=== PATIENT | male | born 1940 | race Caucasian/White ===

== ENCOUNTER 2019-07-21 01:10 | Day surgery (SDC) | payer MEDICARE, OTHER, SELFPAY ==
[2019-07-01 16:01] VITALS: BMI 27.0
[2019-07-21] MEDS: CIPROFLOXACIN 500 MG TAB PO (12:00)
--- NOTE | 2019-07-21 12:06 | WPDHPUPDATE1 ---
History and Physical Update Update Date/Time: 07/21/19 12:06 History and Physical has been reviewed, including an updated exam of the patient. There are NO changes in the patient's condition. Risks, benefits, and alternatives have been discussed and questions answered. Patient agrees to proceed with procedure.
[2019-07-21 12:20] VITALS: BP 132/78; PULSE 88; RESP 18; O2SAT 98
[2019-07-21] MEDS: LIDOCAINE HCL 2% GEL UROJET 10 ML PKG MUCOUS MEM (12:20)
[2019-07-21 12:27] VITALS: BP 128/67; PULSE 71; RESP 20; O2SAT 98
--- NOTE | 2019-07-21 14:35 | OP_ITS ---
DATE OF PROCEDURE: 07/21/2019 PREOPERATIVE DIAGNOSIS: Left nephrolithiasis. POSTOPERATIVE DIAGNOSIS: Left nephrolithiasis. PROCEDURE PERFORMED: 1. Cystoscopy. 2. Left ureteral stent removal. INDICATION: The patient has a history of a left-sided ureteral stone. He underwent ureteral stent placement on 05/28/2019 and subsequent ureteroscopy on 06/03/2019. The patient presents today for a stent removal. Risks and alternatives discussed with patient and his and they agreed. DESCRIPTION OF PROCEDURE: Informed consent was obtained. The patient was taken to the operating room, given a local lidocaine Urojet. He was prepped and draped in a sterile fashion. We inserted a 16-Irish Storm catheter via urethra into the bladder. The stent was visualized at the ureteral orifice. . It was encrusted. With a grasper, stent was removed in 1 piece. I then reinserted the cystoscope. Inspection did not reveal any significant stone in the bladder and no significant bleeding. The scope was removed. The patient was awakened, taken to the recovery room in stable condition. FLUID: Per anesthesia. COMPLICATIONS: None. ESTIMATED BLOOD LOSS: Minimal. FOLLOWUP: The patient will have a renal ultrasound in 1 month to follow up his stone disease and ensure there was no postoperative hydronephrosis. Francisco I MT: David HOBSON
== END 2019-07-21 13:00 | disposition home or self-care (01) ==
PROVIDERS: PCP Family Medicine; Visit Provider Urology
PROC: (CPT 52352; principal; 2019-07-21 12:00)
DX: Z46.6 Encounter for fitting and adjustment of urinary device (principal)
CPT/HCPCS: 52310; A9270

== ENCOUNTER 2019-08-23 12:34 | Outpatient (CLI) | payer MEDICARE, OTHER, SELFPAY ==
--- NOTE | ~2019-08-23 | US_ITS ---
US retroperitoneal comp 08/23/2019 13:13 Procedure: Realtime transabdominal ultrasound of the kidneys and bladder. Indication: Left ureteral stone Comparison: CT dated 05/27/2019 Findings: Renal echotexture is normal bilaterally without hydronephrosis or renal calculus. There are multiple bilateral renal cysts, largest in the right kidney measuring 5.8 x 5.6 x 6.5 cm. Largest in the left kidney measures 11.2 x 10.5 x 8.8 cm. The right kidney measures 11.2 cm and left kidney lilly sures 10.9 cm. Bladder is not distended for evaluation. Impression: 1: Bilateral renal cysts. Reviewed, dictated and finalized at location A. Impression: 1: Bilateral renal cysts.
== END 2019-08-23 12:35 | disposition home or self-care (01) ==
LOC: ANHIMG 12:38
PROVIDERS: PCP Family Medicine; Visit Provider Urology
DX: N20.1 Calculus of ureter (principal); N28.1 Cyst of kidney, acquired
CPT/HCPCS: 76770

== ENCOUNTER 2019-10-08 11:39 | Outpatient (CLI) | payer MEDICARE, OTHER, SELFPAY ==
[2019-10-08 12:09] LABS: Add Urine Microscopic? YES; Appearance Urine Clear (Clear); Bacteria Urine Trace /hpf; Bilirubin Urine Negative (Negative); Blood Urine Negative (Negative); Color Urine Straw (Yellow); Glucose Urine UA Negative (Negative); Ketones Urine Negative (Negative); Leukocyte Esterase Ur 3+ LEU/UL (Negative); Mucus Urine Rare /lpf; Nitrate Urine Negative (Negative); Protein Urine Negative (Negative); Specific Grav Ur 1.009 (1.001-1.035); Squamous Epithelial Cell Urine Few /hpf (Few); Urobilinogen Urine Negative mg/dL (<2.0); WBC Urine 16-20 /hpf
== END 2019-10-08 11:40 | disposition home or self-care (01) ==
PROVIDERS: PCP Family Medicine; Visit Provider Family Medicine
DX: N39.0 Urinary tract infection, site not specified (principal)
CPT/HCPCS: 81001; 87077; 87086; 87088; 87186

== ENCOUNTER 2019-11-02 23:02 | Inpatient (IN) | payer MEDICARE, OTHER, SELFPAY ==
--- NOTE | ~2019-11-02 | CT_ITS ---
EXAMINATION: CT abdomen pelvis wo con DATE: 11/02/2019 23:54 INDICATION: Generalized abdominal pain TECHNIQUE: Computed tomography (CT) of the abdomen and pelvis was performed without intravenous contr ast. Automated exposure control and iterative reconstruction technique were employed. Exam dose: 137 2.34 mGy-cm total exam DLP. COMPARISON: 05/27/2019 CT abdomen pelvis FINDINGS: Stable approximately 8 mm calcified nodule in the anteromedial right lower lobe (series 4 i mage 13). Stable small peripheral pleural-based nodule, lingula (image 14). Cardiomegaly. No pericardial or pleural effusion. No hepatic or splenic, pancreatic or adrenal space-occupying mass lesion is evident. The gallbladder is present. No gallbladder wall thickening or pericholecystic fluid collection. No bile duct or pancr eatic duct dilatation. There are bilateral renal cysts, measuring up to 9 cm on the left, 6.2 cm on the right. Approximately 6 mm nonobstructing lower pole left renal calculus. There is a Storm catheter in the urinary bladder. The urinary bladder is evacuated. There is one or possibly due to medially contiguous stones in the urinary bladder, measuring up to ap proximately 5.5 x 7.3 mm maximal overall dimension on axial view. There is diverticulosis of the colon, primarily in the sigmoid region. Diverticulum is noted at the h epatic flexure of the colon. There is a prominent amount of fecal material within the colon. No bowel obstruction, bowel wall thickening, pneumatosis or intraperitoneal free air. There is calcification of the abdominal aorta and branches. No abdominal aortic aneurysm. No intraper itoneal or retroperitoneal or pelvic mass lesion or adenopathy or ascites. Degenerative changes of the thoracic and lumbar spine, including degenerative changes of the apophyse al joints with associated grade 1 anterolisthesis at L3-4. IMPRESSION: Left nephrolithiasis Urinary bladder stones Cardiomegaly, coronary and aortic, iliofemoral atherosclerosis Bilateral renal cysts Reviewed, dictated and finalized at Location A. Reviewed, dictated and finalized at location A.
--- NOTE | ~2019-11-02 | XR_ITS ---
EXAMINATION: XR chest 1V portable INDICATION: Left-sided rib pain TECHNIQUE: Portable AP chest at 2355 hours COMPARISON: 11/09/2018 FINDINGS: There is stable cardiomegaly. Old left sided rib fractures are noted. There is mild atelect asis of the lung bases. No pleural effusion or pneumothorax is identified. IMPRESSION: 1. Stable cardiomegaly. Reviewed, dictated and finalized at location A. IMPRESSION: 1. Stable cardiomegaly.
--- NOTE | ~2019-11-02 | CT_ITS ---
EXAMINATION: CT brain wo con DATE: 11/02/2019 23:54 INDICATION: Fall. Altered mental state. Confusion. History of Alzheimer's disease. Dementia. Parkinso n's. TECHNIQUE: Computed tomography (CT) of the head was performed without intravenous contrast. The mA wa s adjusted according to patient size. Iterative reconstruction technique was employed. Exam dose: 16 64.67 mGy-cm total exam DLP. COMPARISON: 11/13/2018 CT brain FINDINGS: There is bilateral vertebral artery and bilateral carotid siphon internal carotid artery ca lcification. There is nonspecific diminished attenuation of the subcortical and periventricular cereb ral white matter, likely due to chronic small vessel ischemic changes. There are central and cortical cerebral atrophy. No intracranial mass lesion or hemorrhage or cerebro vascular accident is evident. No midline shift or mass effects. No subdural or epidural hematoma. No orbital mass lesion. There is mild soft tissue thickening of the ethmoid air cells, primarily on the right and a small muc us retention cyst or polyp of the left sphenoid sinus. The right frontal sinus is not developed. The included paranasal sinuses are otherwise unremarkable. The mastoid air cells are normally developed a nd aerated. No fracture or bone destruction of the cranial vault. IMPRESSION: Cerebral atherosclerosis and chronic small vessel ischemic changes of the cerebral white matter Central and cortical cerebral atrophy No acute intracranial finding Reviewed, dictated and finalized at Location A. Reviewed, dictated and finalized at location A.
[2019-11-02 23:04] VITALS: BP 120/65; PULSE 94; RESP 22; TEMP 36.6; O2SAT 98
--- NOTE | 2019-11-02 23:10 | ECG_ITS ---
Measurements Intervals [place] Rate: 92 P: 40 MO: 215 QRS: -73 QRSD: 162 T: 79 QT: 412 QTc: 511 Interpretive Statements SINUS RHYTHM WITH FIRST DEGREE AV BLOCK ATRIAL PREMATURE COMPLEX RIGHT BUNDLE BRANCH BLOCK LEFT ANTERIOR FASCICULAR BLOCK BASELINE ARTIFACT- V1 ABNORMAL ECG Electronically Signed On 11-03-2019 7:20:14 CDT by Armando Alfredo D.O.
--- NOTE | 2019-11-02 23:13 | ED.AMS ---
HPI - Altered Mental Status General Chief Complaint: Altered Mental Status Stated Complaint: falling, increased ams Time Seen by Provider: 11/02/19 23:04 Source: RN notes reviewed History of Present Illness HPI narrative: Patient presents emergency department from home via EMS for altered mental status. Patient with history of Parkinson's and history is per is present. Per the the patient has been increasingly weak over the past week. He slid out of his chair today and was unable to get up. Approximately 1 week ago the patient was seen by Dr. Zarco in the office with a Storm catheter placed for urinary incontinence and started on Bactrim for a UTI. Per the patient does have a history of Parkinson's disease and is followed by Dr. Martinez. The patient has been noted to be having some hallucinations and increased agitation as well at home. states the patient is been able to get up and ambulate at home. Denies any fevers or chills nausea vomiting does note the patient has been constipated and was given MiraLAX 2 days ago Related Data Home Medications Medication Instructions Recorded Confirmed carbidopa-levodopa 1 tablet PO QID 05/27/19 07/21/19 ondansetron HCl [Zofran] 4 mg PO Q8H PRN 05/27/19 07/21/19 sertraline [Zoloft] 50 mg PO DAILY 05/27/19 07/21/19 acetaminophen 650 mg PO Q8H PRN 07/01/19 07/21/19 albuterol sulfate 2.5 mg INHALATION Q6H PRN 07/01/19 07/21/19 bisacodyl 5 mg PO ONCE PRN 07/01/19 07/21/19 bisacodyl 10 mg NM DAILY PRN 07/01/19 07/21/19 fluticasone propionate [Flonase 1 spray INTRANASAL DAILY 07/01/19 07/21/19 Allergy Relief] bakcpxenqpwl-jox-dapp-FA-vit K 1 tablet PO DAILY 07/01/19 07/21/19 [Adults Multivitamin] Allergies Allergy/AdvReac Type Severity Reaction Status Date / Time lactose Allergy Unknown GI DISTRESS Verified 07/21/19 12:14 Review of Systems Review of Systems: Narrative: Gen.: Denies fevers or chills ENT: Denies congestion Respiratory: Denies shortness of breath or cough CV: Denies chest pain or palpitations GI: Reports lower abdominal pain denies any vomiting or diarrhea Reports Storm with UTI Musculoskeletal: Denies back pain or muscle pain Neuro: Denies numbness, tingling, weakness or focal weakness Skin: Denies rash Except as documented, all other systems reviewed and negative [facility] Past Medical History Medical History Ambulatory dysfunction Arthritis CAD (coronary artery disease) CHF (congestive heart failure) Depression Diverticulosis Fracture of left hip requiring operative repair GERD (gastroesophageal reflux disease) GI bleed HTN (hypertension) IBS (irritable bowel syndrome) Kidney stones Nonobstructing stones on the left Lewy body dementia MVP (mitral valve prolapse) Myocardial infarction Cardiac catheterization 2009 was err [facility] Parkinson's disease Pneumonia Prostate cancer Sleep apnea Not adherence to CPAP therapy 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 There adult son recently moved in as he is currently going through divorce. He is usually able to ambulate and climb stairs without assistance. Patient has 2 children. 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 The patient is a former smoker and smoked a pack-a-day for about 10 years. Quit smoking in 1973. Does not drink alcohol. Code status is full code. His Mahsa is his durable power of multifocal button grinder and is at bedside. Primary care physician is Dr. Clancy. Neurologist is Dr. Jed Martinez Smoking status: Former smoker Tobacco type: cigarettes Second hand toba
[2019-11-02 23:28] LABS: Basophils Absolute Auto 0.1 K/mm3 (0.0-0.1); Basophils Percent Auto 0.4 % (0.2-1.2); Eosinophils Absolute Auto 0.2 K/mm3 (0-0.3); Eosinophils Percent Auto 1.1 % (0-4.4); Hemoglobin 13.2 g/dL (14.0-18.0); Immature Granulocyte Absolute 0.08 K/mm3 (0.00-0.031); Immature Granulocyte Percent A 0.5 % (0-0.5); Lymphocytes Absolute Auto 1.17 K/mm3 (0.9-3.2); Lymphocytes Percent Auto 7.7 % (18.3-44.2); Mean Corpuscular Hemoglobin 31.7 pg (26-34); Mean Corpuscular Volume 95.9 fl (80-100); Mean Platelet Volume 10.4 fl (7.4-10.4); Monocytes Absolute Auto 1.2 K/mm3 (0.1-0.6); Monocytes Percent Auto 8.1 % (2.6-8.5); Neutrophils Absolute Auto 12.6 K/mm3 (1.3-6.7); Neutrophils Percent Auto 82.2 % (45.5-73.1); Platelet Count Result 229 k/mm3 (150-375); Red Blood Count 4.17 M/mm3 (4.6-6.20); Red Cell Distribution Width 13.4 % (11.5-14.5); White Blood Count 15.3 K/mm3 (4.5-10.0)
[2019-11-02 23:37] LABS: Add Urine Microscopic? YES; Appearance Urine Cloudy (Clear); Bacteria Urine 4+ /hpf; Bilirubin Urine Negative (Negative); Blood Urine 1+ (Negative); Calcium Oxalate Crystals Urine Present /hpf; Color Urine Yellow (Yellow); Glucose Urine UA Negative (Negative); Ketones Urine Trace mg/dL (Negative); Leukocyte Esterase Ur 3+ LEU/UL (Negative); Mucus Urine Rare /lpf; Nitrate Urine Positive (Negative); Protein Urine 2+ mg/dL (Negative); RBC Urine 21-50 /hpf (0-2); Specific Grav Ur 1.018 (1.001-1.035); Urobilinogen Urine Negative mg/dL (<2.0); WBC Urine >75 /hpf
[2019-11-02 23:38] LABS: Lactic Acid Reflex 3.1 mmol/L (0.7-2.1)
[2019-11-02 23:38] LABS: Prothrombin Time 12.6 Seconds (11.1-14.7)
[2019-11-02 23:39] LABS: Alanine Aminotransferase 6 U/L (4-50); Albumin Level 4.5 g/dL (3.5-5.1); Alkaline Phosphatase 151 U/L (38-126); Aspartate Amino Transferase 20 U/L (17-59); Bilirubin,Total 0.4 mg/dL (0.2-1.3); Blood Urea Nitrogen 31 mg/dL (9-20); Calcium 9.6 mg/dL (8.4-10.2); Carbon Dioxide 25 mmol/L (22-30); Chloride 105 mmol/L (98-107); Estimated Glomerular Filt Rate 45; Glucose 114 mg/dL (75-110); Partial Thromboplastin Time 28.1 SECONDS (22.3-36.8); Sodium 137 mmol/L (137-145)
[2019-11-02] MEDS: SODIUM CHLORIDE 0.9% IV 1,000 ML 999 ML IV CONT (23:44)
[2019-11-03] VITALS (7 sets, daily range): BP systolic 100–138; BP diastolic 55–69; PULSE 61–83; RESP 16–20; TEMP 36.5–37.1; O2SAT 94–100; BMI 30.4
[2019-11-03] MEDS: SODIUM CHLORIDE 0.9% IV 1,000 ML 999 ML IV CONT (01:25)
--- NOTE | 2019-11-03 01:50 | ADMGEN ---
This patient, Cesar Ramírez, was admitted to Medical Room 346-01. Patient/family oriented to hospital policies and general routines including ID bracelet, bed and alarms, visiting hours, pain management, procedures, bathroom and other care routines, personal items, smoking policy, room service/diet, and visiting hours. Valuables list has been completed. Information on how to activate the Rapid Response Team has been discussed. Patient/Family are encouraged to report perceived risks to care and to ask questions if they do not understand what they are told or what they should do.
[2019-11-03] MEDS: SODIUM CHLORIDE 0.9% IV 1,000 ML 125 ML IV CONT ×2 (01:53→10:04)
[2019-11-03 02:25] LABS: Reflex Lactic Acid Yes or No Add Lactic
[2019-11-03 02:57] LABS: Lactic Acid 1.3 mmol/L (0.7-2.1)
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
[2019-11-03 08:09] LABS: Hematocrit 34.3 % (42.0-52.0); Hemoglobin 11.3 g/dL (14.0-18.0); Mean Corpuscular HGB Conc 32.9 g/dl (32-36); Mean Corpuscular Hemoglobin 31.8 pg (26-34); Mean Corpuscular Volume 96.6 fl (80-100); Mean Platelet Volume 10.5 fl (7.4-10.4); Platelet Count Result 188 k/mm3 (150-375); Red Blood Count 3.55 M/mm3 (4.6-6.20); Red Cell Distribution Width 13.5 % (11.5-14.5); White Blood Count 8.1 K/mm3 (4.5-10.0)
[2019-11-03] MEDS: SERTRALINE HCL 50 MG TABLET PO (08:11)
[2019-11-03] MEDS: CARBIDOPA/LEVODOPA 25/250 MG TABLET 1 TABLET PO ×4 (08:11→20:26)
[2019-11-03] MEDS: AMLODIPINE BESYLATE 5 MG TABLET PO (08:11)
[2019-11-03] MEDS: polyethylene glycoL 3350 17 GM POWD.PACK PO (08:12)
[2019-11-03] MEDS: FLUTICASONE PROPIONATE 0.05% NA SPR 16 GM BTL (*BKC) 1 SPRAY NASAL (08:12)
[2019-11-03 08:22] LABS: Blood Urea Nitrogen 25 mg/dL (9-20); Calcium 8.7 mg/dL (8.4-10.2); Carbon Dioxide 21 mmol/L (22-30); Chloride 110 mmol/L (98-107); Estimated CRCL calculation 45 ml/min; Estimated Glomerular Filt Rate 54; Glucose 90 mg/dL (75-110); Potassium 4.6 mmol/L (3.4-5.0); Sodium 137 mmol/L (137-145)
[2019-11-03] MEDS: busPIRone HCL 5 MG TABLET PO (13:06)
--- NOTE | 2019-11-03 15:41 | PM.IMPN ---
Progress Note: A&P Assessment and Plan (1) Acute UTI: Code(s): N39.0 - Urinary tract infection, site not specified Status: Acute Assessment and Plan: UA suggestive of UTI. PAtient has had frequent UTIs in the past. states he is incontinent when he does not have a Storm placed. UC and BC pending. WBC improved overnight to 8.1k today. VSS, afebrile Continue empiric antibiotic therapy with Rocephin. Light IVF for now (2) Sepsis: Code(s): A41.9 - Sepsis, unspecified organism Status: Acute Assessment and Plan: Technically septic with tachypnea, leukocytosis and lactic acidosis at arrival and UTI as source. VSS improved; leukocytosis and lactic acidosis resolved. Blood cultures and urine cultures are pending. Continue treatment for suspected source of UTI as outlined above Light IVF given his CHF (3) Acute metabolic encephalopathy: Code(s): G93.41 - Metabolic encephalopathy Status: Acute Assessment and Plan: Presenting with hallucinations. Complicating underlying Lewy body dementia and Parkinsons on multiple medications for each. states he sees Dr. Martinez as outpatient, but has not been able to see him since 04/2019. is concerned that patient may be taking too many medications and has been started on buspirone by a provider at [facility] and has not seen Dr. Martinez since. Treat underlying infectious process. Continue home buspirone, clonazepam, Seroquel, and Zoloft for now Consult placed to Dr. Martinez to potentially adjust medications if applicable. (4) Acute renal insufficiency: Code(s): N28.9 - Disorder of kidney and ureter, unspecified Status: Acute Assessment and Plan: Due to underlying UTI and sepsis. Cr improved to 1.30 since yesterday. Continue light IV fluid hydration. Repeat BMP tomorrow Hold angiotensin receptor harriet for now. Consider resuming tomorrow (5) Parkinson's disease: Code(s): G20 - Parkinson's disease Status: Acute Assessment and Plan: Continue home Sinemet Dr. Martinez consulted and appreciate recommendations (6) Storm catheter in place: Code(s): Z96.0 - Presence of urogenital implants Status: Acute Assessment and Plan: Storm catheter placed by Dr. Zarco approximately 1 week ago. Storm is draining appropriately in the patient has outpatient follow-up arranged. Subjective Date/time seen: 11/03/19 15:41 Interval history: Patient is a 79 yo M with past medical history of recent urinary retention with Storm catheter placement, Parkinson's disease and Lewy body dementia who is here for UTI/sepsis, AMS likely due to infection on top of baseline dementia, and KAREEM. Patient is A&O to himself and ; he is pleasantly confused and at times, giving nonsensical answers. He likely poor historian given his dementia and acute UTI. He does report occasional nausea without vomiting; no other complaints. HPI/ROS difficulty to obtain, but when questioned, denies f/c/s, cp/palpitations, sob/cough, abd pain, changes in BMs Review of Systems Review of Systems: ROS unobtainable: Yes unobtainable due to mental status (Difficult to obtain; see above) Exam Narrative: Exam Narrative: Patient lying in semi-lowe's position Const: General: cooperative, comfortable, no acute distress, well developed, alert and ill appearing chronically Orientation/consciousness: oriented to person (and ) and confusion (pleasantly confused) HENMT: Head: normocephalic and atraumatic General nose exam: Normal nares present Face and sinus: face symmetric Eyes: General: appearance normal, both eyes and all related structures EOM: EOMs intact bilaterally Neck: Neck: trachea midline and s
[2019-11-03] MEDS: SODIUM CHLORIDE 0.9% IV 1,000 ML 75 ML IV CONT (16:35)
[2019-11-03] MEDS: QUEtiapine FUMARATE 25 MG TABLET PO (16:36)
[2019-11-03] MEDS: CARBIDOPA/LEVODOPA 25/100 MG CR TABLET 1 TABLET PO (19:40)
[2019-11-03] MEDS: TOLNAFTATE 1% POWDER 45 GM BTL 1 APPLIC TOPICAL (20:26)
[2019-11-03] MEDS: QUEtiapine FUMARATE 25 MG TABLET 50 MG PO (20:26)
[2019-11-03] MEDS: CLONAZEPAM 0.5 MG TAB PO (20:28)
[2019-11-04 04:53] VITALS: BP 127/78; PULSE 102; RESP 18; TEMP 36.1; O2SAT 95
[2019-11-04 06:06] LABS: Basophils Absolute Auto 0.1 K/mm3 (0.0-0.1); Basophils Percent Auto 0.7 % (0.2-1.2); Eosinophils Absolute Auto 0.5 K/mm3 (0-0.3); Hematocrit 38.3 % (42.0-52.0); Hemoglobin 12.3 g/dL (14.0-18.0); Immature Granulocyte Absolute 0.03 K/mm3 (0.00-0.031); Immature Granulocyte Percent A 0.4 % (0-0.5); Lymphocytes Percent Auto 29.9 % (18.3-44.2); Mean Corpuscular HGB Conc 32.1 g/dl (32-36); Mean Corpuscular Hemoglobin 31.4 pg (26-34); Mean Corpuscular Volume 97.7 fl (80-100); Mean Platelet Volume 10.7 fl (7.4-10.4); Monocytes Absolute Auto 0.8 K/mm3 (0.1-0.6); Monocytes Percent Auto 10.7 % (2.6-8.5); Neutrophils Absolute Auto 3.6 K/mm3 (1.3-6.7); Neutrophils Percent Auto 51.3 % (45.5-73.1); Platelet Count Result 196 k/mm3 (150-375); Red Blood Count 3.92 M/mm3 (4.6-6.20); Red Cell Distribution Width 13.4 % (11.5-14.5)
[2019-11-04 06:39] LABS: Blood Urea Nitrogen 15 mg/dL (9-20); Calcium 9.2 mg/dL (8.4-10.2); Carbon Dioxide 22 mmol/L (22-30); Chloride 110 mmol/L (98-107); Estimated CRCL calculation 58 ml/min; Estimated Glomerular Filt Rate > 60; Glucose 79 mg/dL (75-110); Potassium 4.5 mmol/L (3.4-5.0); Sodium 139 mmol/L (137-145)
[2019-11-04] MEDS: AMLODIPINE BESYLATE 5 MG TABLET PO (08:55)
[2019-11-04] MEDS: CARBIDOPA/LEVODOPA 25/250 MG TABLET 1 TABLET PO ×4 (08:56→20:00)
[2019-11-04] MEDS: FLUTICASONE PROPIONATE 0.05% NA SPR 16 GM BTL (*BKC) 1 SPRAY NASAL (08:56)
[2019-11-04] MEDS: TOLNAFTATE 1% POWDER 45 GM BTL 1 APPLIC TOPICAL ×2 (08:56→20:01)
[2019-11-04] MEDS: polyethylene glycoL 3350 17 GM POWD.PACK PO (08:56)
[2019-11-04] MEDS: SERTRALINE HCL 50 MG TABLET PO (09:00)
[2019-11-04 14:00] VITALS: BP 132/91; PULSE 79; RESP 20; TEMP 36.4; O2SAT 97
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
--- NOTE | 2019-11-04 15:39 | PM.IMPN ---
Progress Note: A&P Assessment and Plan (1) Acute UTI: Code(s): N39.0 - Urinary tract infection, site not specified Status: Acute Assessment and Plan: UA suggestive of UTI. PAtient has had frequent UTIs in the past. states he is incontinent when he does not have a Storm placed. Bladder Calculi noted and possible source of infection as wel. UCx growing E. Coli susceptible to Rocephin and BCx negative to date x 2. WBC improved overnight to 7.0k today. VSS, afebrile Continue with Rocephin. Likely discharge on PO cefdinir at discharge (2) Sepsis: Code(s): A41.9 - Sepsis, unspecified organism Status: Acute Assessment and Plan: Technically septic with tachypnea, leukocytosis and lactic acidosis at arrival and UTI as source. VSS improved; leukocytosis and lactic acidosis resolved; afebrile. BCx negative to date x 2. UCx growing E. coli sensitive to Rocephin, as above Continue treatment for suspected source of UTI as outlined above (3) Acute metabolic encephalopathy: Code(s): G93.41 - Metabolic encephalopathy Status: Acute Assessment and Plan: Presenting with hallucinations. Complicating underlying Lewy body dementia and Parkinsons on multiple medications for each. states he sees Dr. Martinez as outpatient, but has not been able to see him since 04/2019. is concerned that patient may be taking too many medications and has been started on buspirone by a provider at an OSH during a recent hospital stay and has not seen Dr. Martinez since. Treat underlying infectious process. Continue home buspirone, clonazepam, Seroquel, and Zoloft for now Appreciate recommendations per Dr. Martinez (4) Acute renal insufficiency: Code(s): N28.9 - Disorder of kidney and ureter, unspecified Status: Acute Assessment and Plan: Due to underlying UTI and sepsis. Cr improved to 1.00 since yesterday. Appears to have resolved Repeat BMP tomorrow Hold angiotensin receptor harriet for now. Consider resuming tomorrow (5) Parkinson's disease: Code(s): G20 - Parkinson's disease Status: Acute Assessment and Plan: states there is a discrepanc with his Sinemet he takes at bedtime Will have Nursing address his Sinemet and adjust as needed. Continue home Sinemet Dr. Martinez consulted and appreciate recommendations (6) Storm catheter in place: Code(s): Z96.0 - Presence of urogenital implants Status: Acute Assessment and Plan: Storm catheter placed by Dr. Zarco approximately 1 week ago. Storm is draining appropriately; clear and yellow urine output. Consult to Urology placed and appreciate recommendations Appears Storm to be replaced tomorrow per Urology Subjective Date/time seen: 11/04/19 15:39 Interval history: Patient is a 79 yo M with past medical history of recent urinary retention with Storm catheter placement, Parkinson's disease and Lewy body dementia who is here for UTI/sepsis, AMS likely due to infection on top of baseline dementia, and KAREEM. Patient is A&O to himself and ; he is pleasantly confused and at times, giving nonsensical answers, much like yesterday. He is a poor historian given his dementia and acute UTI. He does not give me any complaints today. HPI/ROS difficulty to obtain, but when questioned, denies f/c/s, cp/palpitations, sob/cough, abd pain Review of Systems Review of Systems: ROS unobtainable: Yes unobtainable due to mental status (Difficult to obtain; see above) Neurologic: Reports Abnormal speech present (clear, but nonsensical at times; inappropriate responses at times) Exam Narrative: Exam Narrative: Patient lying in semi-lowe's position Const: General: cooperative, comfo
--- NOTE | 2019-11-04 16:29 | CONS_ITS ---
DATE OF CONSULTATION: 11/04/[address] Aaron Grant and Dr. Rahman. REASON FOR CONSULTATION: Increasing confusion and hallucination. HISTORY OF PRESENT ILLNESS: A 79-year-old right-handed male presented to the ER via EMS for the complaint of increasing confusion with hallucination and generalized weakness. The patient reportedly was in Dr. Zarco's office 1 week ago, because of urinary retention and has the Storm catheter in at this particular time. He was sent home from the office for the UTI with Bactrim on, but reportedly has become increasingly confused and has had the increasing hallucination. In addition, the patient has ongoing history of multiple problems, as he has been outlined, particularly the gait dysfunction with underlying arthritis, coronary artery disease, congestive heart failure, diverticulosis, GERD, hypertension, irritable bowel syndrome, renal stones, Lewy bodies dementia, Parkinson's disease, prostatic cancer, sleep apnea, squamous cell carcinoma in situ, tibial fracture, ulcer, and urinary retention. He has undergone multiple surgeries. He is followed by Dr. Alfonso Clancy on a regular basis in addition to our office. He has history of smoking 10 pack years, former smoker. No alcohol intake. MEDICATIONS: Has been taking multiple medications as outlined particular to mention: 1. Carbidopa-levodopa 1 tablet 4 times a day. 2. Sertraline 50 mg daily. 3. BuSpar 5 mg twice a day p.r.n. 4. Seroquel 50 mg h.s. 5. Clonazepam 0.5 mg at h.s. 6. Carbidopa-levodopa 1 tab at night as well in addition to Seroquel 25 mg in the evening. PHYSICAL EXAMINATION: VITAL SIGNS: Evaluation up until now revealed him to be afebrile, normotensive, blood pressure 120/65, pulse ox 98%. GENERAL: Awake, alert, cooperative, in no obvious acute distress. HEENT: Head normocephalic with no cranial bruit. Ear, nose, throat exam normal. NECK: Supple with no cervical bruit. No thyromegaly. No lymphadenopathy. HEART: Regular with no murmur. LUNGS: Clear. ABDOMEN: Soft with no organomegaly. NEUROLOGICAL: He is the awake, alert, completely incoherence and had no regard for the physician needs in the examination room, looking at the window, looking at the TV. Pupils round, regular. Ryan of vision full to the threat stimuli. Extraocular movements are spontaneously full with no nystagmus. Reflexes are symmetrical. Plantars are downgoing. IMPRESSION: History of Lewy body dementia with ongoing Parkinsonian symptom as well as the hallucination. At this stage, the patient is receiving BuSpar 5 mg twice a day, clonazepam 0.5 mg h.s. and Seroquel 50 mg h.s. in addition to the 25 that is total of 75. I will adjust the medication accordingly. WING SCHAFER M.D. BOX SHOOK PATCHER BOX SHOOK PATCHER D I MT: David
--- NOTE | 2019-11-04 18:05 | PC.NURSE ---
Pt called to confirm home meds in order to clarify discrepancies. she states patient is taking: buspar is 5mg BID OLGA (not PRN) sinemet 25/250 1 tab TID (not QID) sinemet ER 50/200 1 tab @HS expressed concerns about pt not receiving irbesartan 300mg daily @1200. is confused as to whether or not patient has been receiving correct doses/schedule at home. Dr. Martinez consulted to adjust meds if necessary. Juan's note states sinemet is given at QID and HS, this is how it is currently scheduled on the MAR. message left with Aaron Grant regarding this information
[2019-11-04] MEDS: QUEtiapine FUMARATE 25 MG TABLET PO (18:21)
[2019-11-04] MEDS: CARBIDOPA/LEVODOPA 25/100 MG CR TABLET 1 TABLET PO (19:53)
[2019-11-04] MEDS: CLONAZEPAM 0.5 MG TAB PO (20:00)
[2019-11-04] MEDS: QUEtiapine FUMARATE 25 MG TABLET 50 MG PO (20:01)
[2019-11-04 20:23] VITALS: BP 113/57; PULSE 71; RESP 20; TEMP 36.1; O2SAT 95
[2019-11-05 04:15] VITALS: BP 129/64; PULSE 64; RESP 16; TEMP 36.1; O2SAT 100
[2019-11-05 05:56] LABS: Hematocrit 39.8 % (42.0-52.0); Hemoglobin 12.9 g/dL (14.0-18.0); Mean Corpuscular HGB Conc 32.4 g/dl (32-36); Mean Corpuscular Hemoglobin 31.5 pg (26-34); Mean Corpuscular Volume 97.3 fl (80-100); Mean Platelet Volume 10.8 fl (7.4-10.4); Platelet Count Result 199 k/mm3 (150-375); Red Blood Count 4.09 M/mm3 (4.6-6.20); Red Cell Distribution Width 13.2 % (11.5-14.5); White Blood Count 7.1 K/mm3 (4.5-10.0)
[2019-11-05 06:01] LABS: Blood Urea Nitrogen 17 mg/dL (9-20); Calcium 9.4 mg/dL (8.4-10.2); Carbon Dioxide 22 mmol/L (22-30); Chloride 107 mmol/L (98-107); Estimated CRCL calculation 58 ml/min; Estimated Glomerular Filt Rate > 60; Glucose 73 mg/dL (75-110); Potassium 4.3 mmol/L (3.4-5.0); Sodium 137 mmol/L (137-145)
[2019-11-05] MEDS: FLUTICASONE PROPIONATE 0.05% NA SPR 16 GM BTL (*BKC) 1 SPRAY NASAL (08:10)
[2019-11-05] MEDS: CARBIDOPA/LEVODOPA 25/250 MG TABLET 1 TABLET PO ×2 (08:10→13:34)
[2019-11-05] MEDS: polyethylene glycoL 3350 17 GM POWD.PACK PO (08:10)
[2019-11-05] MEDS: AMLODIPINE BESYLATE 5 MG TABLET PO (08:10)
[2019-11-05] MEDS: CEFDINIR 300 MG CAPSULE PO (08:10)
[2019-11-05] MEDS: TOLNAFTATE 1% POWDER 45 GM BTL 1 APPLIC TOPICAL (08:11)
--- NOTE | 2019-11-05 09:33 | WPDUROPN2 ---
Progress Note: A&P Assessment and Plan (1) Left renal stone: Code(s): N20.0 - Calculus of kidney Status: Acute Assessment and Plan: No further evaluation necessary, will follow yearly with a KUB. (2) Bladder calculi: Code(s): N21.0 - Calculus in bladder Status: Acute Assessment and Plan: If patient doesn't pass through ramírez on his own, will remove with cysto in office in a month at follow up appt with Dr. Zarco. (3) Ramírez catheter in place: Code(s): Z96.0 - Presence of urogenital implants Status: Acute Assessment and Plan: His ramírez catheter was exchanged today to a 16fr coude catheter. It was inserted without difficulty, betadine swabs were used prior to placement. 50cc of clear yellow urine on return. (4) Acute UTI: Code(s): N39.0 - Urinary tract infection, site not specified Status: Acute Assessment and Plan: Continue IV antibiotics, discharge with appropriate oral antibiotics. Ok to discharge at anytime. Subjective Subjective Date/Time Seen: 11/05/19 09:33 Patient doing well this morning, he is slightly confused. Review of Systems Cardiovascular: Cardiovascular: Reports no additional cardiovascular complaints Respiratory: Respiratory: Reports no additional respiratory complaints Gastrointestinal: Gastrointestinal: Denies abdominal pain, Denies nausea and Denies vomiting Genitourinary: Genitourinary: Denies hematuria and Denies flank pain Exam Resp: Effort & Inspection: normal respiratory effort Cardio: Rate: regular rate GI: GI Palp: No Tenderness to palpation present (GI) : Male General Exam: Yes normal external exam Meatus: meatus normal Scrotum: scrotum normal Extrem: Right lower extremity: no edema Left lower extremity: no edema Objective Data Vital Signs Vital Signs: Vital Signs - 24 hr 11/04/19 14:00 11/04/19 20:23 11/05/19 04:15 Temperature 97.5 F L 97.0 F L 96.9 F L Pulse Rate 79 71 64 Respiratory Rate 20 20 16 Blood Pressure 132/91 H 113/57 L 129/64 Pulse Oximetry 97 95 100 Intake/Output Intake/Output: Intake & Output 11/02/19 11/03/19 11/04/19 11/05/19 23:59 23:59 23:59 23:59 Intake Total 3690 1200 0 Output Total 3550 2950 700 Balance 140 -1750 -700 Meds/Results Medications: Active Medications Generic Name Dose Route Start Last Admin Trade Name Alex PRN Reason Stop Dose Admin Acetaminophen 650 mg 11/03/19 06:16 Tylenol Tablet PO Q8H PRN Pain Amlodipine Besylate 5 mg 11/03/19 09:00 11/05/19 08:10 Norvasc PO 5 mg DAILY OLGA Administration Bisacodyl 10 mg 11/03/19 06:16 Dulcolax Suppository RECTAL DAILY PRN Constipation Buspirone HCl 5 mg 11/03/19 06:16 11/03/19 13:06 Buspar PO 5 mg BID PRN Administration Agitation Carbidopa/Levodopa 1 tablet 11/03/19 20:00 11/04/19 19:53 Sinemet Cr 25/100 Mg PO 1 tablet 2000 OLGA Administration Carbidopa/Levodopa 1 tablet 11/03/19 09:00 11/05/19 08:10 Sinemet 25/250 Mg PO 1 tablet QID OLGA Administration Cefdinir 300 mg 11/05/19 09:00 11/05/19 08:10 Omnicef PO 300 mg Q12HR OLGA Administration Clonazepam 0.5 mg 11/03/19 21:00 11/04/19 20:00 Klonopin Tablet PO 0.5 mg HS OLGA Administration Fluticasone Propionate 1 spray 11/03/19 09:00 11/05/19 08:10 Flonase 0.05% Nasal Heber NASAL 1 spray DAILY OLGA Administration Irbesartan 300 mg 11/05/19 09:00 Avapro PO DAILY OLGA Polyethylene Glycol 17 gm 11/03/19 09:00 11/05/19 08:10 Miralax PO 17 gm QAM OLGA Administration Quetiapine Fumarate 25 mg 11/03/19 18:00 11/04/19 18:21 Seroquel PO 25 mg QPM OLGA Administration Quetiapine Fumarate 50 mg 11/03/19 21:00 11/04/19 20:01 Seroquel PO 50 mg HS OLGA Administration Sertraline HCl 50 mg 11/03/19 10:00 11/04/19 09:00 Zoloft PO 50 mg 1000 OLGA Administration Tolnaftate 1 applic
--- NOTE | 2019-11-05 10:05 | PM.DS ---
DS: Admitting Diagnosis Admitting Diagnosis Admitting Diagnosis: Urinary tract infection, site not specified DS: Discharge Diagnosis Discharge Diagnosis (1) Acute UTI: Code(s): N39.0 - Urinary tract infection, site not specified Status: Acute Assessment and Plan: UA suggestive of UTI. Patient has had frequent UTIs in the past. states he is incontinent when he does not have a Ramírez placed. Bladder Calculi noted and possible source of infection as well. Unable to determine if UTI due to ramírez catheter. UCx growing E. Coli susceptible to Rocephin and BCx negative to date x 2. WBC stable at 7.1k today. VSS, afebrile Patient switched to PO cefdinir today; continue at discharge to complete a 7 day total of antibiotics (2) Sepsis: Code(s): A41.9 - Sepsis, unspecified organism Status: Acute Assessment and Plan: Technically septic with tachypnea, leukocytosis and lactic acidosis at arrival and UTI as source. VSS improved; leukocytosis and lactic acidosis resolved; afebrile. BCx negative to date x 2. UCx growing E. coli sensitive to Rocephin, as above Continue treatment for suspected source of UTI as outlined above (3) Acute metabolic encephalopathy: Code(s): G93.41 - Metabolic encephalopathy Status: Acute Assessment and Plan: Presenting with hallucinations. Complicating underlying Lewy body dementia and Parkinsons on multiple medications for each. states he sees Dr. Martinez as outpatient, but has not been able to see him since 04/2019. is concerned that patient may be taking too many medications and has been started on buspirone by a provider at an OSH during a recent hospital stay and has not seen Dr. Martinez since. Patient more A&Ox3 for me today; more appropriate answers for me today although still confused at times Treat underlying infectious process. Spoke with Dr. Martinez who recommended holding buspirone at discharge with resuming as needed for anxiety while at SNF. Also recommended resuming other medications as prescribed. F/u with Dr. Martinez as outpatient Appreciate recommendations per Dr. Martinez (4) Acute renal insufficiency: Code(s): N28.9 - Disorder of kidney and ureter, unspecified Status: Acute Assessment and Plan: Due to underlying UTI and sepsis. Cr 1.00; stable. Appears to have resolved Resumed ARB today (5) Parkinson's disease: Code(s): G20 - Parkinson's disease Status: Acute Assessment and Plan: states there is a discrepancy with his Sinemet he takes at bedtime. Although, Dr. Martinez recommends his current dosage at this time Continue home Sinemet as prescribed Dr. Martinez consulted and appreciate recommendations (6) Ramírez catheter in place: Code(s): Z96.0 - Presence of urogenital implants Status: Acute Assessment and Plan: Ramírez catheter placed by Dr. Zarco approximately 1 week ago. Ramírez is draining appropriately; clear and yellow urine output. Consult to Urology placed and appreciate recommendations Ramírez replaced today per Urology F/u with Urology in 4 weeks for replacement Ramírez DS: Summary Hospital Course Reason for hospitalization: UTI/Sepsis, KAREEM Hospital Course: Patient is a 79 yo M with history of recent urinary retention with Ramírez catheter placement, Parkinson's disease and Lewy body dementia who presented to the ER on 11/01 via EMS from home due to increased confusion, hallucinations and weakness. While in the ER, patient met criteria for sepsis with leukocytosis, tachypnea and suspected UTI based on UA as source; patient also noted to have KAREEM. Patient admitted under this setting. Please see H&P for further details. Presenting VS: Temp Pulse Resp
--- NOTE | 2019-11-05 10:30 | P.CDI_ITS ---
CDI Query Clarification Request - UTI has been documented. Urine culture growing >100,000 E Coli - Chronic indwelling ramírez present - Bladder Calculi noted and possible source of infection as well documented. Please further specify if UTI is: * Due to indwelling ramírez catheter * Not due to indwelling ramírez catheter * Unable to determine if due to indwelling ramírez catheter
--- NOTE | 2019-11-05 10:30 | WPDCDIQUERY2 ---
CDI Query Clarification Request - UTI has been documented. Urine culture growing >100,000 E Coli - Chronic indwelling ramírez present - Bladder Calculi noted and possible source of infection as well documented. Please further specify if UTI is: Due to indwelling ramírez catheter Not due to indwelling ramírez catheter Unable to determine if due to indwelling ramírez catheter
[2019-11-05] MEDS: SERTRALINE HCL 50 MG TABLET PO (10:36)
[2019-11-05] MEDS: IRBESARTAN 150 MG TABLET 300 MG PO (10:36)
[2019-11-05 17:00] LABS: SARS-CoV-2 RNA PCR Negative
== END 2019-11-05 15:20 | DRG 871 ==
LOC: ANHED 11-03 01:30 → ANH3MED 11-03 01:36
PROVIDERS: Physician Assistant; Admitting Provider Internal Medicine; Emergency Provider Emergency Medicine; PCP Family Medicine; Visit Provider Family Medicine
DX: A41.9 Sepsis, unspecified organism (principal); G93.41 Metabolic encephalopathy; N39.0 Urinary tract infection, site not specified; Z20.828 Contact with and (suspected) exposure to other viral communicable diseases; B96.20 Unspecified Escherichia coli [E. coli] as the cause of diseases classified elsewhere; Z96.0 Presence of urogenital implants; N28.9 Disorder of kidney and ureter, unspecified; N20.0 Calculus of kidney; N21.0 Calculus in bladder; Z87.891 Personal history of nicotine dependence; G31.83 Neurocognitive disorder with Lewy bodies; F02.80 Dementia in other diseases classified elsewhere, unspecified severity, without behavioral disturbance, psychotic disturbance, mood disturbance, and anxiety; N39.498 Other specified urinary incontinence
CPT/HCPCS: 36415; 70450; 71045; 74176; 80048; 80053; 81001; 83605; 83735; 85025; 85027; 85610; 85730; 87040; 87077; 87086; 87088; 87186; 87635; 93005; 96361; 96365; 96374; 96376; 97110; 97162; 97165; 97530; 99291; A9270; C9803; G0378; J0696; J7030; U0003